=== PATIENT | female | born 1970 | race Native Hawaiian/Other Pacific Islander ===

== ENCOUNTER → 2023-05-19 08:41 | Outpatient (REF) | payer OTHER, SELFPAY | LOC: WDC 08:41 | PROVIDERS: ATTENDING PHYSICIAN Obstetrics & Gynecology; FAMILY PHYSICIAN Student in an Organized Health Care Education/Training Program | DX: R92.2 Inconclusive mammogram (principal) | CPT/HCPCS: 76641 ==

== ENCOUNTER → 2024-01-19 13:15 | Outpatient (REF) | payer OTHER, SELFPAY | LOC: WDC 13:15 | PROVIDERS: ATTENDING PHYSICIAN Obstetrics & Gynecology; FAMILY PHYSICIAN Student in an Organized Health Care Education/Training Program | DX: Z12.31 Encounter for screening mammogram for malignant neoplasm of breast (principal) | CPT/HCPCS: 77063; 77067 ==

== ENCOUNTER → 2024-02-28 09:37 | Outpatient (REF) | payer OTHER, SELFPAY | LOC: WDC 09:37 | PROVIDERS: ATTENDING PHYSICIAN Obstetrics & Gynecology; FAMILY PHYSICIAN Student in an Organized Health Care Education/Training Program | DX: R92.2 Inconclusive mammogram (principal) | CPT/HCPCS: 76641 ==

== ENCOUNTER → 2024-04-25 09:59 | Outpatient (REF) | payer OTHER, SELFPAY | LOC: HWRAD 09:59 | PROVIDERS: ATTENDING PHYSICIAN Urology; FAMILY PHYSICIAN Student in an Organized Health Care Education/Training Program; REFERRING PHYSICIAN Obstetrics & Gynecology | DX: R31.29 Other microscopic hematuria (principal); N95.8 Other specified menopausal and perimenopausal disorders | CPT/HCPCS: 76770; 76856 ==